=== PATIENT | female | born 1965 | race Caucasian/White ===

== ENCOUNTER → 2017-02-22 | Outpatient (CLI) | payer MEDICARE, MEDICAID ==
--- NOTE | 2017-02-23 13:36 | REP ---
RADIONUCLIDE THYROID UPTAKE AND SCAN: HISTORY: Thyrotoxicosis. Diffuse goiter. COMPARISON STUDY: March 29, 2016. TECHNIQUE: 419 microcuries of I123 sodium iodide is ingested and 24 uptake and functional thyroid images are acquired. FINDINGS: The 24 uptake value is elevated today at 42.6 percent (25-35%). Functional images demonstrate enlargement and homogeneous function in both lobes of the thyroid. No cold or warm lesion is seen. The right lobe measures 7.4 cm in craniocaudal span and the left lobe measures 6.7 cm. IMPRESSION: Homogeneous uptake in an enlarged gland with increased uptake consistent with Graves disease. Signed by Ryan Cameron MD 02/23/2017 02:49 P
== END ==
LOC: M RAD 10:59
PROVIDERS: ATTEND Internal Medicine Endocrinology, Diabetes & Metabolism
DX: E04.9 Nontoxic goiter, unspecified (principal)
CPT/HCPCS: 78012; A9516

== ENCOUNTER → 2017-03-06 | Outpatient (CLI) | payer MEDICARE, MEDICAID | LOC: M RAD 13:56 | PROVIDERS: ATTEND Internal Medicine Endocrinology, Diabetes & Metabolism | DX: E05.90 Thyrotoxicosis, unspecified without thyrotoxic crisis or storm (principal) | CPT/HCPCS: 79005; A9517 ==

== ENCOUNTER 2017-08-21 07:20 | Emergency (ER) | payer MEDICARE, MEDICAID ==
[2017-08-21] MEDS: IPRATROPIUM 0.5MG/ALBUTEROL 2.5MG INH SOL UD 3ML (DUONEB)(J7620) NEB ×2 (08:06→08:19)
[2017-08-21 08:21] LABS: BASO % 0.2 % (0.0-1.0); EOS % 0.4 % (0.0-3.0); HEMATOCRIT 33.7 % (36.0-47.0); HEMOGLOBIN 11.5 g/dl (12.0-16.0); IMMATURE GRANULOCYTE % 0.5 % (0-3.0); LYMPH # 1.4 10^3/uL (1.5-4.5); MEAN CORPUSCULAR HEMOGLOBIN 31.9 pg (27.0-33.0); MEAN CORPUSCULAR HGB CONC 34.1 g/dl (32.0-36.5); MEAN CORPUSCULAR VOLUME 93.6 fl (80.0-96.0); MONO % 10.8 % (0.0-5.0); NEUTROPHILS # 6.8 10^3/uL (1.8-7.7); NEUTROPHILS % 73.1 % (36.0-66.0); PLATELET COUNT, AUTOMATED 220 10^3/uL (150-450); RED CELL DISTRIBUTION WIDTH 12.5 % (11.5-14.5); WHITE BLOOD COUNT 9.3 10^3/uL (4.0-10.0)
[2017-08-21 08:27] LABS: ABG BASE EXCESS -0.4 (-2.0-2.0); ABG HCO3 21.8 MEQ/L (22.0-26.0); ABG O2 SATURATION 94.1 % (95.0-99.0); ABG PARTIAL PRESSURE CO2 28.5 mmHg (35.0-45.0); ABG PARTIAL PRESSURE O2 66.8 mmHg (75.0-100.0); ABG STANDARD HCO3 24.1 MEQ/L (22.0-26.0); ABG TOTAL CO2 22.7 MEQ/L (22.0-29.0); ABG pH (ARTERIAL) 7.502 UNITS (7.350-7.450)
[2017-08-21 08:34] LABS: INR 1.21; PROTHROMBIN TIME 15.5 SECONDS (12.4-14.5)
[2017-08-21 08:55] LABS: ALBUMIN 2.8 GM/DL (3.2-5.2); ALBUMIN/GLOBULIN RATIO 0.56 (1.00-1.93); ALKALINE PHOSPHATASE 106 U/L (45-117); ALT/SGPT 18 U/L (12-78); ANION GAP 9 MEQ/L (8-16); AST/SGOT 31 U/L (7-37); BILIRUBIN,DIRECT 0.2 MG/DL (0.0-0.2); BILIRUBIN,TOTAL 0.6 MG/DL (0.2-1.0); BLOOD UREA NITROGEN 12 MG/DL (7-18); CALCIUM LEVEL 8.3 MG/DL (8.5-10.1); CARBON DIOXIDE LEVEL 25 MEQ/L (21-32); CHLORIDE LEVEL 101 MEQ/L (98-107); CPK CREATINE PHOSPHOKINASE 41 U/L (26-192); GLOMERULAR FILTRATION RATE > 60.0 (>51); GLUCOSE, FASTING 96 MG/DL (70-100); POTASSIUM SERUM 3.6 MEQ/L (3.5-5.1); SODIUM LEVEL 135 MEQ/L (136-145); TOTAL PROTEIN 7.8 GM/DL (6.4-8.2); TROPONIN I < 0.02 NG/ML (< 0.10)
[2017-08-21 08:57] LABS: LACTIC ACID SEPSIS PROTOCOL 2.6 MMOL/L (0.4-2.0)
[2017-08-21] MEDS ORDERED: ISOVUE-370 76% 100ML VIAL (Q9967) As Ordered (09:00)
[2017-08-21 09:01] LABS: MB/CK RELATIVE INDEX 2.43 (< OR =4); NT-PRO BNP 318 PG/ML (<125); THYROID STIMULATING HORMONE 0.044 uIU/ML (0.358-3.740)
[2017-08-21] MEDS: methylPREDNISolone INJ 125 MG/2 ML VIAL (J2930) IV (09:13)
[2017-08-21] MEDS: NS 1,000 ML IV (09:14)
== END 2017-08-21 11:12 | disposition home or self-care (01) ==
LOC: M ED 07:20
DX: R59.0 Localized enlarged lymph nodes (principal); R91.8 Other nonspecific abnormal finding of lung field; J44.9 Chronic obstructive pulmonary disease, unspecified; I51.9 Heart disease, unspecified; Z79.890 Hormone replacement therapy; Z79.899 Other long term (current) drug therapy; Z86.39 Personal history of other endocrine, nutritional and metabolic disease; Z92.3 Personal history of irradiation; Z91.030 Bee allergy status

== ENCOUNTER 2017-08-21 16:18 | Inpatient (IN) | payer MEDICARE, MEDICAID ==
[2017-08-21] MEDS: IPRATROPIUM 0.5MG/ALBUTEROL 2.5MG INH SOL UD 3ML (DUONEB)(J7620) NEB (16:53)
[2017-08-21] MEDS ORDERED: IPRATROPIUM 0.5MG/ALBUTEROL 2.5MG INH SOL UD 3ML (DUONEB)(J7620) NEB (19:00)
[2017-08-21] MEDS: NS 1,000 ML IV (20:40)
[2017-08-21 21:11] LABS: ETHYL ALCOHOL (ETHANOL) < 0.003 % (0.000-0.010)
[2017-08-21] MEDS: NADOLOL 20MG TABLET PO (21:12)
[2017-08-21] MEDS: LEVOTHYROXINE 125MCG TABLET (0.125MG) PO (21:14)
[2017-08-21] MEDS: LIOTHYRONINE 25 MCG TAB PO (21:19)
[2017-08-21 21:49] LABS: AMPHETAMINES LEVEL URINE NEGATIVE (NEGATIVE); BARBITURATES URINE NEGATIVE (NEGATIVE); BENZODIAZEPINES URINE NEGATIVE (NEGATIVE); CANNABINOIDS URINE POSITIVE (NEGATIVE); COCAINE METABOLITE URINE NEGATIVE (NEGATIVE); METHADONE URINE NEGATIVE (NEGATIVE); OPIATES URINE NEGATIVE (NEGATIVE); PHENCYCLIDINE URINE NEGATIVE (NEGATIVE)
[2017-08-22 04:11] LABS: HEMATOCRIT 28.2 % (36.0-47.0); HEMOGLOBIN 9.7 g/dl (12.0-16.0); IMMATURE GRANULOCYTE % 0.9 % (0-3.0); LYMPH # 0.7 10^3/uL (1.5-4.5); LYMPH % 10.4 % (24.0-44.0); MEAN CORPUSCULAR HEMOGLOBIN 32.1 pg (27.0-33.0); MEAN CORPUSCULAR HGB CONC 34.4 g/dl (32.0-36.5); MEAN CORPUSCULAR VOLUME 93.4 fl (80.0-96.0); MONO # 0.3 10^3/uL (0.0-0.8); NEUTROPHILS # 5.4 10^3/uL (1.8-7.7); NEUTROPHILS % 83.7 % (36.0-66.0); PLATELET COUNT, AUTOMATED 189 10^3/uL (150-450); RED BLOOD COUNT 3.02 10^6/uL (4.00-5.40); RED CELL DISTRIBUTION WIDTH 12.6 % (11.5-14.5); WHITE BLOOD COUNT 6.5 10^3/uL (4.0-10.0)
[2017-08-22 04:34] LABS: ALBUMIN 2.3 GM/DL (3.2-5.2); ALBUMIN/GLOBULIN RATIO 0.55 (1.00-1.93); ALKALINE PHOSPHATASE 113 U/L (45-117); ALT/SGPT 16 U/L (12-78); ANION GAP 9 MEQ/L (8-16); AST/SGOT 19 U/L (7-37); BILIRUBIN,TOTAL 0.3 MG/DL (0.2-1.0); BLOOD UREA NITROGEN 25 MG/DL (7-18); CARBON DIOXIDE LEVEL 23 MEQ/L (21-32); CHLORIDE LEVEL 106 MEQ/L (98-107); CREATININE FOR GFR 0.93 MG/DL (0.55-1.30); GLOMERULAR FILTRATION RATE > 60.0 (>51); GLUCOSE, FASTING 229 MG/DL (70-100); POTASSIUM SERUM 3.9 MEQ/L (3.5-5.1); SODIUM LEVEL 138 MEQ/L (136-145); TOTAL PROTEIN 6.5 GM/DL (6.4-8.2)
[2017-08-22] MEDS: LEVOTHYROXINE 125MCG TABLET (0.125MG) PO (06:05)
[2017-08-22 07:44] LABS: BASO % 0.1 % (0.0-1.0); HEMATOCRIT 30.4 % (36.0-47.0); HEMOGLOBIN 10.4 g/dl (12.0-16.0); IMMATURE GRANULOCYTE % 0.5 % (0-3.0); LYMPH # 0.8 10^3/uL (1.5-4.5); LYMPH % 7.9 % (24.0-44.0); MEAN CORPUSCULAR HEMOGLOBIN 31.5 pg (27.0-33.0); MEAN CORPUSCULAR HGB CONC 34.2 g/dl (32.0-36.5); MEAN CORPUSCULAR VOLUME 92.1 fl (80.0-96.0); MONO # 0.6 10^3/uL (0.0-0.8); MONO % 5.3 % (0.0-5.0); NEUTROPHILS # 9.2 10^3/uL (1.8-7.7); NEUTROPHILS % 86.2 % (36.0-66.0); PLATELET COUNT, AUTOMATED 214 10^3/uL (150-450); RED CELL DISTRIBUTION WIDTH 12.5 % (11.5-14.5); WHITE BLOOD COUNT 10.7 10^3/uL (4.0-10.0)
[2017-08-22 08:13] LABS: ALBUMIN 2.5 GM/DL (3.2-5.2); ALBUMIN/GLOBULIN RATIO 0.64 (1.00-1.93); ALKALINE PHOSPHATASE 122 U/L (45-117); ALT/SGPT 17 U/L (12-78); ANION GAP 8 MEQ/L (8-16); AST/SGOT 19 U/L (7-37); BILIRUBIN,TOTAL 0.3 MG/DL (0.2-1.0); BLOOD UREA NITROGEN 24 MG/DL (7-18); CALCIUM LEVEL 8.2 MG/DL (8.5-10.1); CARBON DIOXIDE LEVEL 23 MEQ/L (21-32); CHLORIDE LEVEL 110 MEQ/L (98-107); CREATININE FOR GFR 0.79 MG/DL (0.55-1.30); GLOMERULAR FILTRATION RATE > 60.0 (>51); GLUCOSE, FASTING 164 MG/DL (70-100); MAGNESIUM LEVEL 2.1 MG/DL (1.8-2.4); POTASSIUM SERUM 4.8 MEQ/L (3.5-5.1); SODIUM LEVEL 141 MEQ/L (136-145); TOTAL PROTEIN 6.4 GM/DL (6.4-8.2)
[2017-08-22] MEDS: LIOTHYRONINE 25 MCG TAB PO (08:58)
[2017-08-22] MEDS: NADOLOL 20MG TABLET PO ×2 (09:00→21:30)
[2017-08-22] MEDS ORDERED: LevoFLOXacin 500 MG TABLET PO (12:00)
[2017-08-22] MEDS ORDERED: ALBUTEROL 90 MCG/ACT 8GM HFA INHALER INH (12:00)
[2017-08-22] MEDS: TIOTROPIUM INHALER/CAPSULE (SPIRIVA) INH (12:44)
[2017-08-22] MEDS: SYMBICORT 160/4.5MCG INHALER 6GM INH ×2 (12:45→20:11)
[2017-08-22] MEDS: EUCERIN 120GM CREAM EXT (14:48)
[2017-08-22] MEDS: LevoFLOXacin 500 MG TABLET PO (14:48)
[2017-08-22] MEDS ORDERED: ISOVUE-370 76% 100ML VIAL (Q9967) As Ordered (15:46)
[2017-08-22 15:59] LABS: INR 1.07; PROTHROMBIN TIME 14.1 SECONDS (12.4-14.5)
[2017-08-23] MEDS: LEVOTHYROXINE 125MCG TABLET (0.125MG) PO (05:52)
[2017-08-23] MEDS: LevoFLOXacin 500 MG TABLET PO (05:53)
[2017-08-23 06:12] LABS: BASO % 0.1 % (0.0-1.0); EOS % 0.4 % (0.0-3.0); HEMATOCRIT 29.5 % (36.0-47.0); HEMOGLOBIN 9.9 g/dl (12.0-16.0); IMMATURE GRANULOCYTE % 0.7 % (0-3.0); LYMPH % 20.8 % (24.0-44.0); MEAN CORPUSCULAR HEMOGLOBIN 31.7 pg (27.0-33.0); MEAN CORPUSCULAR HGB CONC 33.6 g/dl (32.0-36.5); MEAN CORPUSCULAR VOLUME 94.6 fl (80.0-96.0); MONO # 0.5 10^3/uL (0.0-0.8); MONO % 5.5 % (0.0-5.0); NEUTROPHILS % 72.5 % (36.0-66.0); PLATELET COUNT, AUTOMATED 244 10^3/uL (150-450); RED BLOOD COUNT 3.12 10^6/uL (4.00-5.40); RED CELL DISTRIBUTION WIDTH 12.7 % (11.5-14.5); WHITE BLOOD COUNT 9.7 10^3/uL (4.0-10.0)
[2017-08-23 06:36] LABS: ALBUMIN 2.2 GM/DL (3.2-5.2); ALBUMIN/GLOBULIN RATIO 0.54 (1.00-1.93); ALKALINE PHOSPHATASE 105 U/L (45-117); ALT/SGPT 15 U/L (12-78); ANION GAP 7 MEQ/L (8-16); AST/SGOT 13 U/L (7-37); BILIRUBIN,TOTAL 0.3 MG/DL (0.2-1.0); BLOOD UREA NITROGEN 19 MG/DL (7-18); CALCIUM LEVEL 8.4 MG/DL (8.5-10.1); CARBON DIOXIDE LEVEL 26 MEQ/L (21-32); CHLORIDE LEVEL 109 MEQ/L (98-107); CREATININE FOR GFR 0.66 MG/DL (0.55-1.30); GLOMERULAR FILTRATION RATE > 60.0 (>51); GLUCOSE, FASTING 79 MG/DL (70-100); SODIUM LEVEL 142 MEQ/L (136-145); TOTAL PROTEIN 6.3 GM/DL (6.4-8.2)
[2017-08-23] MEDS: TIOTROPIUM INHALER/CAPSULE (SPIRIVA) INH (07:39)
[2017-08-23] MEDS: SYMBICORT 160/4.5MCG INHALER 6GM INH ×2 (07:40→20:17)
[2017-08-23] MEDS: LIOTHYRONINE 25 MCG TAB PO ×3 (08:36→08:42)
[2017-08-23] MEDS: NADOLOL 20MG TABLET PO ×2 (08:36→21:00)
[2017-08-23] MEDS ORDERED: FIORICET TAB PO (10:30)
[2017-08-23] MEDS: traZODone 25MG PER 1/2 TABLET PO (21:02)
[2017-08-24] MEDS: LevoFLOXacin 500 MG TABLET PO (05:23)
[2017-08-24] MEDS: LEVOTHYROXINE 125MCG TABLET (0.125MG) PO (05:23)
[2017-08-24 06:02] LABS: BASO % 0.4 % (0.0-1.0); EOS # 0.1 10^3/uL (0.0-0.50); EOS % 1.6 % (0.0-3.0); HEMATOCRIT 30.7 % (36.0-47.0); HEMOGLOBIN 10.3 g/dl (12.0-16.0); IMMATURE GRANULOCYTE % 0.9 % (0-3.0); LYMPH # 1.9 10^3/uL (1.5-4.5); LYMPH % 33.2 % (24.0-44.0); MEAN CORPUSCULAR HEMOGLOBIN 31.9 pg (27.0-33.0); MEAN CORPUSCULAR HGB CONC 33.6 g/dl (32.0-36.5); MONO # 0.5 10^3/uL (0.0-0.8); MONO % 9.4 % (0.0-5.0); NEUTROPHILS # 3.1 10^3/uL (1.8-7.7); NEUTROPHILS % 54.5 % (36.0-66.0); PLATELET COUNT, AUTOMATED 256 10^3/uL (150-450); RED BLOOD COUNT 3.23 10^6/uL (4.00-5.40); WHITE BLOOD COUNT 5.6 10^3/uL (4.0-10.0)
[2017-08-24 06:28] LABS: ALBUMIN 2.2 GM/DL (3.2-5.2); ALBUMIN/GLOBULIN RATIO 0.55 (1.00-1.93); ALKALINE PHOSPHATASE 98 U/L (45-117); ALT/SGPT 12 U/L (12-78); ANION GAP 8 MEQ/L (8-16); AST/SGOT 11 U/L (7-37); BILIRUBIN,TOTAL 0.3 MG/DL (0.2-1.0); BLOOD UREA NITROGEN 22 MG/DL (7-18); CALCIUM LEVEL 8.1 MG/DL (8.5-10.1); CARBON DIOXIDE LEVEL 25 MEQ/L (21-32); CHLORIDE LEVEL 109 MEQ/L (98-107); CREATININE FOR GFR 0.75 MG/DL (0.55-1.30); GLOMERULAR FILTRATION RATE > 60.0 (>51); GLUCOSE, FASTING 87 MG/DL (70-100); MAGNESIUM LEVEL 1.7 MG/DL (1.8-2.4); POTASSIUM SERUM 4.3 MEQ/L (3.5-5.1); SODIUM LEVEL 142 MEQ/L (136-145); TOTAL PROTEIN 6.2 GM/DL (6.4-8.2)
[2017-08-24] MEDS: SYMBICORT 160/4.5MCG INHALER 6GM INH ×2 (08:35→20:51)
[2017-08-24] MEDS: TIOTROPIUM INHALER/CAPSULE (SPIRIVA) INH (08:35)
[2017-08-24] MEDS: MAG SULF 1GM/100ML (MAG RUN) 1 GM in APPROPRIATE DILUENT 1 EA IV (08:56)
[2017-08-24] MEDS: LIOTHYRONINE 25 MCG TAB PO (08:56)
[2017-08-24] MEDS: NADOLOL 20MG TABLET PO ×2 (08:56→20:30)
[2017-08-24] MEDS: EPINEPHrine 1MG/10ML SYRINGE 1.5IN As Ordered (11:57)
[2017-08-24] MEDS: MUPIROCIN 2% OINT 22 GM TUBE As Ordered (12:30)
[2017-08-24] MEDS: CETACAINE SPRAY 5GM As Ordered (12:34)
[2017-08-24] MEDS: ceFAZolin 2 GM/D5W 50 ML IV BAG (J0690 PER 500MG) As Ordered (12:42)
[2017-08-24] MEDS: THROMBIN SOLN 20,000 UNITS KIT As Ordered (12:50)
[2017-08-24] MEDS: BUPIVACAINE LIPOSOME/PF 1.3% 20 ML VIAL (13.3MG/ML)(EXPAREL) As Ordered (13:00)
[2017-08-24] MEDS ORDERED: fentaNYL 250 MCG/5 ML INJECTION (J3010) As Ordered (13:08)
[2017-08-24] MEDS ORDERED: dexameTHASONE 4 MG/ML 1ML VIAL (J1100) As Ordered (13:08)
[2017-08-24] MEDS ORDERED: ROCURONIUM BROMIDE 50 MG/5 ML VIAL As Ordered (13:08)
[2017-08-24] MEDS ORDERED: MIDAZOLAM INJ 2 MG/2 ML VIAL (J2250) As Ordered (13:08)
[2017-08-24] MEDS ORDERED: ONDANSETRON 4MG/2ML VIAL (J2405) As Ordered (13:08)
[2017-08-24] MEDS ORDERED: PROPOFOL 200 MG/20 ML VIAL As Ordered (13:08)
[2017-08-24] MEDS ORDERED: LIDOCAINE 2% INJ 100 MG/5 ML SDV (FOR ANES.) As Ordered (13:08)
[2017-08-24] MEDS ORDERED: LEVALBUTEROL 1.25 MG/0.5 ML CONCENTRATE NEB As Ordered (13:34)
[2017-08-24] MEDS: LEVALBUTEROL 1.25 MG/0.5 ML CONCENTRATE NEB INH (13:38)
[2017-08-24] MEDS ORDERED: fentaNYL 100 MCG/2 ML INJECTION (J3010) IV (13:45)
[2017-08-24] MEDS: LR 1,000 ML IV (13:45)
[2017-08-24] MEDS ORDERED: PERCOCET 5MG/325MG TAB PO (13:45)
[2017-08-24] MEDS: PERCOCET 5MG/325MG TAB PO ×2 (17:03→23:19)
[2017-08-24] MEDS: MORPHINE 4 MG/ML 1ML VIAL (J2270) IV (18:57)
[2017-08-24] MEDS: traZODone 25MG PER 1/2 TABLET PO (20:31)
[2017-08-25] MEDS: MORPHINE 4 MG/ML 1ML VIAL (J2270) IV (00:46)
[2017-08-25] MEDS: LevoFLOXacin 500 MG TABLET PO (05:37)
[2017-08-25] MEDS: LEVOTHYROXINE 125MCG TABLET (0.125MG) PO (05:37)
[2017-08-25] MEDS ORDERED: MUPIROCIN 2% OINT 22 GM TUBE TOP (06:00)
[2017-08-25 06:30] LABS: BASO % 0.1 % (0.0-1.0); EOS # 0.1 10^3/uL (0.0-0.50); EOS % 0.7 % (0.0-3.0); HEMATOCRIT 28.6 % (36.0-47.0); HEMOGLOBIN 9.7 g/dl (12.0-16.0); IMMATURE GRANULOCYTE % 0.8 % (0-3.0); LYMPH # 1.3 10^3/uL (1.5-4.5); LYMPH % 18.4 % (24.0-44.0); MEAN CORPUSCULAR HEMOGLOBIN 32.1 pg (27.0-33.0); MEAN CORPUSCULAR HGB CONC 33.9 g/dl (32.0-36.5); MEAN CORPUSCULAR VOLUME 94.7 fl (80.0-96.0); MONO # 0.5 10^3/uL (0.0-0.8); MONO % 7.4 % (0.0-5.0); NEUTROPHILS # 5.3 10^3/uL (1.8-7.7); NEUTROPHILS % 72.6 % (36.0-66.0); PLATELET COUNT, AUTOMATED 270 10^3/uL (150-450); RED BLOOD COUNT 3.02 10^6/uL (4.00-5.40); WHITE BLOOD COUNT 7.3 10^3/uL (4.0-10.0)
[2017-08-25 06:54] LABS: ALBUMIN 2.4 GM/DL (3.2-5.2); ALBUMIN/GLOBULIN RATIO 0.57 (1.00-1.93); ALKALINE PHOSPHATASE 116 U/L (45-117); ALT/SGPT 12 U/L (12-78); ANION GAP 9 MEQ/L (8-16); AST/SGOT 10 U/L (7-37); BILIRUBIN,TOTAL 0.3 MG/DL (0.2-1.0); BLOOD UREA NITROGEN 23 MG/DL (7-18); CALCIUM LEVEL 8.3 MG/DL (8.5-10.1); CARBON DIOXIDE LEVEL 25 MEQ/L (21-32); CHLORIDE LEVEL 106 MEQ/L (98-107); GLOMERULAR FILTRATION RATE > 60.0 (>51); GLUCOSE, FASTING 108 MG/DL (70-100); MAGNESIUM LEVEL 2.2 MG/DL (1.8-2.4); POTASSIUM SERUM 4.2 MEQ/L (3.5-5.1); SODIUM LEVEL 140 MEQ/L (136-145); TOTAL PROTEIN 6.6 GM/DL (6.4-8.2)
[2017-08-25] MEDS: LIOTHYRONINE 25 MCG TAB PO (08:51)
[2017-08-25] MEDS: NADOLOL 20MG TABLET PO (08:52)
[2017-08-25] MEDS: TIOTROPIUM INHALER/CAPSULE (SPIRIVA) INH (09:19)
[2017-08-25] MEDS: SYMBICORT 160/4.5MCG INHALER 6GM INH (09:19)
== END 2017-08-25 10:42 | disposition home or self-care (01) | DRG 987 ==
LOC: M MSPAV 08-22 15:27 → M ED 16:18 → M ED INP 18:24 → M ICU 20:16
PROVIDERS: Internal Medicine
PROC: 07B20ZX Excision of Left Neck Lymphatic, Open Approach, Diagnostic (ICD-10-PCS; principal; 2017-08-24 11:45)
PROC: 0BJ08ZZ Inspection of Tracheobronchial Tree, Via Natural or Artificial Opening Endoscopic (ICD-10-PCS; 2017-08-24 11:45)
DX: C34.10 Malignant neoplasm of upper lobe, unspecified bronchus or lung (principal); J18.9 Pneumonia, unspecified organism; R59.0 Localized enlarged lymph nodes; J44.9 Chronic obstructive pulmonary disease, unspecified; I51.9 Heart disease, unspecified; Z79.890 Hormone replacement therapy; Z79.899 Other long term (current) drug therapy; Z86.39 Personal history of other endocrine, nutritional and metabolic disease; Z92.3 Personal history of irradiation; Z91.030 Bee allergy status; I50.9 Heart failure, unspecified; I48.91 Unspecified atrial fibrillation; E83.42 Hypomagnesemia; I95.9 Hypotension, unspecified; E05.90 Thyrotoxicosis, unspecified without thyrotoxic crisis or storm; Z87.891 Personal history of nicotine dependence

== ENCOUNTER → 2017-08-27 | Outpatient (REF) | payer MEDICARE, MEDICAID ==
[2017-08-27 18:47] LABS: FERRITIN 334 NG/ML (8-252); IRON (FE) 49 UG/DL (50-170); PERCENT SATURATION 17.6 % (13.2-45.0); TOTAL IRON BINDING CAPACITY 278 UG/DL (250-450); VITAMIN B12 LEVEL 556 PG/ML
[2017-08-27 18:49] LABS: FOLATE 8.5 NG/ML
== END ==
LOC: M LAB REF 17:40
DX: R59.0 Localized enlarged lymph nodes (principal); D64.9 Anemia, unspecified
CPT/HCPCS: 82746

== ENCOUNTER → 2017-09-03 | Outpatient (CLI) | payer MEDICARE, MEDICAID | LOC: M SMT 10:27 | DX: R91.8 Other nonspecific abnormal finding of lung field (principal); R06.02 Shortness of breath | CPT/HCPCS: 71046 ==

== ENCOUNTER → 2017-09-26 | Outpatient (CLI) | payer MEDICARE, MEDICAID | LOC: M PLARAD 08:30 | DX: C34.12 Malignant neoplasm of upper lobe, left bronchus or lung (principal) | CPT/HCPCS: 78815 ==

== ENCOUNTER 2017-10-01 09:55 | Outpatient (RCR) | payer MEDICARE, MEDICAID | END 2017-10-08 | LOC: M ONCR 09:55 | DX: C34.02 Malignant neoplasm of left main bronchus (principal) | CPT/HCPCS: 77334 ==

== ENCOUNTER 2017-10-10 10:37 | Outpatient (RCR) | payer MEDICARE, MEDICAID | END 2017-11-08 | LOC: M ONCR 10:37 | DX: C34.02 Malignant neoplasm of left main bronchus (principal) | CPT/HCPCS: 77300 ==

== ENCOUNTER → 2017-11-27 | Outpatient (CLI) | payer MEDICARE, MEDICAID | LOC: M ONCR 13:58 | DX: C34.90 Malignant neoplasm of unspecified part of unspecified bronchus or lung (principal) | CPT/HCPCS: G0463 ==

== ENCOUNTER 2017-11-28 13:29 | Outpatient (RCR) | payer MEDICARE, MEDICAID | END 2017-12-08 | LOC: M ONCR 13:29 | DX: C34.02 Malignant neoplasm of left main bronchus (principal) | CPT/HCPCS: 77336 ==

== ENCOUNTER 2017-12-10 11:48 | Outpatient (RCR) | payer MEDICARE, MEDICAID | END 2018-01-08 | LOC: M ONCR 11:48 | DX: C34.02 Malignant neoplasm of left main bronchus (principal) | CPT/HCPCS: 77300 ==

== ENCOUNTER 2018-01-09 11:32 | Outpatient (RCR) | payer MEDICARE, MEDICAID | END 2018-02-08 | LOC: M ONCR 11:32 | DX: C34.02 Malignant neoplasm of left main bronchus (principal) | CPT/HCPCS: 77336 ==

== ENCOUNTER → 2018-02-13 | Outpatient (CLI) | payer MEDICARE, MEDICAID | LOC: M ONCR 10:33 | DX: C34.02 Malignant neoplasm of left main bronchus (principal) | CPT/HCPCS: G0463 ==

== ENCOUNTER → 2018-04-02 | Outpatient (CLI) | payer MEDICARE, MEDICAID | LOC: M PLARAD 09:32 | DX: C34.12 Malignant neoplasm of upper lobe, left bronchus or lung (principal); C79.51 Secondary malignant neoplasm of bone; Z92.21 Personal history of antineoplastic chemotherapy; Z92.3 Personal history of irradiation | CPT/HCPCS: 78815 ==

== ENCOUNTER 2018-04-22 19:38 | Emergency (ER) | payer MEDICARE, MEDICAID ==
[2018-04-22] MEDS: diazePAM 5 MG TAB PO (20:30)
[2018-04-22] MEDS: KETOROLAC 30 MG/ML VIAL (J1885) IV (20:30)
[2018-04-22] MEDS: HYDROMORPHONE HCL 0.5 MG/ 0.5 ML SYRINGE (J1170 PER 1) IV (20:55)
[2018-04-22 20:58] LABS: HEMATOCRIT 35.3 % (36.0-47.0); HEMOGLOBIN 11.9 g/dl (12.0-15.5); MEAN CORPUSCULAR HEMOGLOBIN 32.6 pg (27.0-33.0); MEAN CORPUSCULAR HGB CONC 33.7 g/dl (32.0-36.5); MEAN CORPUSCULAR VOLUME 96.7 fl (80.0-96.0); PLATELET COUNT, AUTOMATED 189 10^3/uL (150-450); RED BLOOD COUNT 3.65 10^6/uL (4.00-5.40); RED CELL DISTRIBUTION WIDTH 12.6 % (11.5-14.5); WHITE BLOOD COUNT 4.1 10^3/uL (4.0-10.0)
[2018-04-22 21:22] LABS: ANION GAP 8 MEQ/L (8-16); BLOOD UREA NITROGEN 17 MG/DL (7-18); CARBON DIOXIDE LEVEL 23 MEQ/L (21-32); CHLORIDE LEVEL 105 MEQ/L (98-107); CREATININE FOR GFR 0.97 MG/DL (0.55-1.30); GLOMERULAR FILTRATION RATE > 60.0 (>51); GLUCOSE, FASTING 91 MG/DL (70-100); POTASSIUM SERUM 4.5 MEQ/L (3.5-5.1); SODIUM LEVEL 136 MEQ/L (136-145)
[2018-04-22 21:43] LABS: KETONE, URINE AUTO RFX NEGATIVE (NEGATIVE); LEUKOCYTE ESTERASE UR AUTO RFX NEGATIVE (NEGATIVE); NITRITE, URINE AUTO RFX NEGATIVE (NEGATIVE); RBC, URINE AUTO RFX 0 /HPF (0-3); SPECIFIC GRAVITY UR AUTO RFX 1.018 (1.002-1.035); SQUAM EPITHELIAL CELL UR AURFX 4 /HPF (0-6); WBC, URINE AUTO RFX 1 /HPF (0-3)
== END 2018-04-22 21:55 | disposition left against medical advice (07) ==
LOC: M ED 19:38
DX: G89.29 Other chronic pain (principal); C79.51 Secondary malignant neoplasm of bone; Z72.89 Other problems related to lifestyle; C34.90 Malignant neoplasm of unspecified part of unspecified bronchus or lung; I50.9 Heart failure, unspecified; I10 Essential (primary) hypertension; E03.9 Hypothyroidism, unspecified; F42.9 Obsessive-compulsive disorder, unspecified; Z72.0 Tobacco use; Z79.899 Other long term (current) drug therapy; Z91.030 Bee allergy status; Z53.21 Procedure and treatment not carried out due to patient leaving prior to being seen by health care provider

== ENCOUNTER 2018-04-22 22:07 | Inpatient (IN) | payer MEDICARE, MEDICAID ==
[2018-04-23] MEDS: HYDROMORPHONE HCL 0.5 MG/ 0.5 ML SYRINGE (J1170 PER 1) IV ×5 (00:41→21:22)
[2018-04-23] MEDS: NORCO, ANEXSIA 5/325MG TABLET (HYDROcodone/ACETAMINOPHEN) PO ×3 (04:36→08:15)
[2018-04-23] MEDS: LEVOTHYROXINE 88MCG TABLET (0.088 MG) PO (05:50)
[2018-04-23] MEDS: MULTIVITAMINS/MINERALS THERAP 1 TAB PO (08:14)
[2018-04-23] MEDS: RIVAROXABAN 20 MG TAB (XARELTO) PO (08:14)
[2018-04-23] MEDS: NADOLOL 20MG TABLET PO ×2 (08:26→21:20)
[2018-04-23] MEDS: MORPHINE 4 MG/ML 1ML VIAL/SYRINGE (J2270) IV (09:52)
[2018-04-23 12:04] LABS: HEMATOCRIT 29.6 % (36.0-47.0); MEAN CORPUSCULAR HEMOGLOBIN 32.6 pg (27.0-33.0); MEAN CORPUSCULAR HGB CONC 33.8 g/dl (32.0-36.5); MEAN CORPUSCULAR VOLUME 96.4 fl (80.0-96.0); PLATELET COUNT, AUTOMATED 139 10^3/uL (150-450); RED BLOOD COUNT 3.07 10^6/uL (4.00-5.40); RED CELL DISTRIBUTION WIDTH 12.7 % (11.5-14.5); WHITE BLOOD COUNT 3.1 10^3/uL (4.0-10.0)
[2018-04-23 12:39] LABS: ALBUMIN 3.3 GM/DL (3.2-5.2); ALKALINE PHOSPHATASE 91 U/L (45-117); ALT/SGPT 14 U/L (12-78); ANION GAP 7 MEQ/L (8-16); AST/SGOT 44 U/L (7-37); BILIRUBIN,TOTAL 0.4 MG/DL (0.2-1.0); BLOOD UREA NITROGEN 19 MG/DL (7-18); CALCIUM LEVEL 7.9 MG/DL (8.5-10.1); CARBON DIOXIDE LEVEL 22 MEQ/L (21-32); CHLORIDE LEVEL 103 MEQ/L (98-107); CREATININE FOR GFR 0.93 MG/DL (0.55-1.30); GLOMERULAR FILTRATION RATE > 60.0 (>51); GLUCOSE, FASTING 90 MG/DL (70-100); POTASSIUM SERUM 4.7 MEQ/L (3.5-5.1); SODIUM LEVEL 132 MEQ/L (136-145); TOTAL PROTEIN 7.4 GM/DL (6.4-8.2)
[2018-04-23] MEDS: oxyCODONE 5MG TAB PO ×2 (14:32→23:53)
[2018-04-23] MEDS: MORPHINE 15 MG SA TAB PO (22:21)
[2018-04-24] MEDS: HYDROMORPHONE HCL 0.5 MG/ 0.5 ML SYRINGE (J1170 PER 1) IV ×8 (00:47→23:52)
[2018-04-24] MEDS: oxyCODONE 5MG TAB PO ×3 (06:10→19:37)
[2018-04-24] MEDS: LEVOTHYROXINE 88MCG TABLET (0.088 MG) PO (06:11)
[2018-04-24 06:26] LABS: EOS # 0.1 10^3/uL (0.0-0.50); EOS % 4.2 % (0.0-3.0); HEMOGLOBIN 10.5 g/dl (12.0-15.5); IMMATURE GRANULOCYTE % 1.9 % (0-3.0); LYMPH # 0.6 10^3/uL (1.5-4.5); MEAN CORPUSCULAR HEMOGLOBIN 32.2 pg (27.0-33.0); MEAN CORPUSCULAR HGB CONC 32.8 g/dl (32.0-36.5); MEAN CORPUSCULAR VOLUME 98.2 fl (80.0-96.0); MONO # 0.5 10^3/uL (0.0-0.8); MONO % 15.4 % (0.0-5.0); NEUTROPHILS # 1.8 10^3/uL (1.8-7.7); NEUTROPHILS % 58.5 % (36.0-66.0); PLATELET COUNT, AUTOMATED 151 10^3/uL (150-450); RED BLOOD COUNT 3.26 10^6/uL (4.00-5.40); RED CELL DISTRIBUTION WIDTH 12.5 % (11.5-14.5); WHITE BLOOD COUNT 3.1 10^3/uL (4.0-10.0)
[2018-04-24 06:47] LABS: ANION GAP 7 MEQ/L (8-16); BLOOD UREA NITROGEN 18 MG/DL (7-18); C REACTIVE PROTEIN QUANTITATIV 0.52 MG/DL (0.00-0.30); CARBON DIOXIDE LEVEL 23 MEQ/L (21-32); CHLORIDE LEVEL 104 MEQ/L (98-107); CREATININE FOR GFR 0.92 MG/DL (0.55-1.30); GLOMERULAR FILTRATION RATE > 60.0 (>51); GLUCOSE, FASTING 107 MG/DL (70-100); POTASSIUM SERUM 4.6 MEQ/L (3.5-5.1); SODIUM LEVEL 134 MEQ/L (136-145)
[2018-04-24 06:54] LABS: ERYTHROCYTE SEDIMENTATION RATE 67 mm/hr (0-30)
[2018-04-24] MEDS: MULTIVITAMINS/MINERALS THERAP 1 TAB PO (09:05)
[2018-04-24] MEDS: RIVAROXABAN 20 MG TAB (XARELTO) PO (09:06)
[2018-04-24] MEDS: MORPHINE 15 MG SA TAB PO ×2 (09:06→21:40)
[2018-04-24] MEDS: NADOLOL 20MG TABLET PO ×2 (09:17→21:42)
[2018-04-24] MEDS: NORCO, ANEXSIA 5/325MG TABLET (HYDROcodone/ACETAMINOPHEN) PO ×3 (09:53→23:18)
[2018-04-24] MEDS: MIRALAX *UNIT DOSE* 17GM PACKET PO ×2 (11:48→21:40)
[2018-04-24] MEDS: DOCUSATE SODIUM 100 MG CAP PO ×2 (11:49→21:40)
[2018-04-25] MEDS: oxyCODONE 5MG TAB PO ×4 (01:37→20:02)
[2018-04-25] MEDS: HYDROMORPHONE HCL 0.5 MG/ 0.5 ML SYRINGE (J1170 PER 1) IV ×7 (03:00→21:28)
[2018-04-25] MEDS: NORCO, ANEXSIA 5/325MG TABLET (HYDROcodone/ACETAMINOPHEN) PO ×2 (03:39→07:43)
[2018-04-25] MEDS: LEVOTHYROXINE 88MCG TABLET (0.088 MG) PO (06:01)
[2018-04-25 06:52] LABS: BASO % 0.8 % (0.0-1.0); EOS # 0.1 10^3/uL (0.0-0.50); EOS % 3.3 % (0.0-3.0); HEMATOCRIT 34.7 % (36.0-47.0); HEMOGLOBIN 11.6 g/dl (12.0-15.5); IMMATURE GRANULOCYTE % 1.6 % (0-3.0); LYMPH # 0.6 10^3/uL (1.5-4.5); LYMPH % 17.6 % (24.0-44.0); MEAN CORPUSCULAR HEMOGLOBIN 32.9 pg (27.0-33.0); MEAN CORPUSCULAR HGB CONC 33.4 g/dl (32.0-36.5); MEAN CORPUSCULAR VOLUME 98.3 fl (80.0-96.0); MONO # 0.6 10^3/uL (0.0-0.8); MONO % 15.1 % (0.0-5.0); NEUTROPHILS # 2.2 10^3/uL (1.8-7.7); NEUTROPHILS % 61.6 % (36.0-66.0); PLATELET COUNT, AUTOMATED 171 10^3/uL (150-450); RED BLOOD COUNT 3.53 10^6/uL (4.00-5.40); RED CELL DISTRIBUTION WIDTH 12.7 % (11.5-14.5); WHITE BLOOD COUNT 3.6 10^3/uL (4.0-10.0)
[2018-04-25 07:13] LABS: ANION GAP 7 MEQ/L (8-16); BLOOD UREA NITROGEN 18 MG/DL (7-18); CALCIUM LEVEL 8.1 MG/DL (8.5-10.1); CARBON DIOXIDE LEVEL 21 MEQ/L (21-32); CHLORIDE LEVEL 101 MEQ/L (98-107); CREATININE FOR GFR 0.99 MG/DL (0.55-1.30); GLOMERULAR FILTRATION RATE > 60.0 (>51); GLUCOSE, FASTING 90 MG/DL (70-100); SODIUM LEVEL 129 MEQ/L (136-145)
[2018-04-25] MEDS: RIVAROXABAN 20 MG TAB (XARELTO) PO (09:01)
[2018-04-25] MEDS: MULTIVITAMINS/MINERALS THERAP 1 TAB PO (09:01)
[2018-04-25] MEDS: MORPHINE 15 MG SA TAB PO ×2 (09:01→20:02)
[2018-04-25] MEDS: MIRALAX *UNIT DOSE* 17GM PACKET PO ×2 (09:03→20:03)
[2018-04-25] MEDS: DOCUSATE SODIUM 100 MG CAP PO ×2 (10:38→20:03)
[2018-04-25] MEDS: NADOLOL 20MG TABLET PO ×2 (10:38→20:03)
[2018-04-25] MEDS: NS 1,000 ML IV (12:19)
[2018-04-25] MEDS: MOM 30ML SUSPENSION UDC PO (12:29)
[2018-04-25 12:57] LABS: OSMOLALITY SERUM 278 MOSM/KG (275-295)
[2018-04-25 18:08] LABS: SODIUM,RANDOM URINE 54 MEQ/L
[2018-04-25 18:09] LABS: OSMOLALITY URINE 358 MOSM/KG (500-800)
[2018-04-26] MEDS: HYDROMORPHONE HCL 0.5 MG/ 0.5 ML SYRINGE (J1170 PER 1) IV ×8 (00:33→22:07)
[2018-04-26] MEDS: oxyCODONE 5MG TAB PO ×4 (02:03→23:00)
[2018-04-26] MEDS: LEVOTHYROXINE 88MCG TABLET (0.088 MG) PO (06:17)
[2018-04-26 06:38] LABS: BASO % 0.5 % (0.0-1.0); EOS # 0.1 10^3/uL (0.0-0.50); EOS % 2.4 % (0.0-3.0); HEMATOCRIT 30.5 % (36.0-47.0); HEMOGLOBIN 10.4 g/dl (12.0-15.5); IMMATURE GRANULOCYTE % 1.1 % (0-3.0); LYMPH # 0.5 10^3/uL (1.5-4.5); LYMPH % 13.6 % (24.0-44.0); MEAN CORPUSCULAR HEMOGLOBIN 32.6 pg (27.0-33.0); MEAN CORPUSCULAR HGB CONC 34.1 g/dl (32.0-36.5); MEAN CORPUSCULAR VOLUME 95.6 fl (80.0-96.0); MONO # 0.5 10^3/uL (0.0-0.8); NEUTROPHILS # 2.6 10^3/uL (1.8-7.7); NEUTROPHILS % 70.4 % (36.0-66.0); PLATELET COUNT, AUTOMATED 161 10^3/uL (150-450); RED BLOOD COUNT 3.19 10^6/uL (4.00-5.40); RED CELL DISTRIBUTION WIDTH 12.4 % (11.5-14.5); WHITE BLOOD COUNT 3.8 10^3/uL (4.0-10.0)
[2018-04-26 07:09] LABS: ANION GAP 9 MEQ/L (8-16); BLOOD UREA NITROGEN 17 MG/DL (7-18); CALCIUM LEVEL 8.8 MG/DL (8.5-10.1); CARBON DIOXIDE LEVEL 19 MEQ/L (21-32); CHLORIDE LEVEL 99 MEQ/L (98-107); CREATININE FOR GFR 0.84 MG/DL (0.55-1.30); GLOMERULAR FILTRATION RATE > 60.0 (>51); GLUCOSE, FASTING 106 MG/DL (70-100); SODIUM LEVEL 127 MEQ/L (136-145)
[2018-04-26] MEDS: NS 1,000 ML IV (07:30)
[2018-04-26] MEDS: MIRALAX *UNIT DOSE* 17GM PACKET PO ×2 (08:49→21:00)
[2018-04-26] MEDS: DOCUSATE SODIUM 100 MG CAP PO ×2 (08:50→21:00)
[2018-04-26] MEDS: MOM 30ML SUSPENSION UDC PO (08:50)
[2018-04-26] MEDS: NADOLOL 20MG TABLET PO ×2 (08:50→21:03)
[2018-04-26] MEDS: MULTIVITAMINS/MINERALS THERAP 1 TAB PO (08:50)
[2018-04-26] MEDS: RIVAROXABAN 20 MG TAB (XARELTO) PO (08:51)
[2018-04-26] MEDS: IBUPROFEN 400 MG TAB PO (08:52)
[2018-04-26] MEDS: MORPHINE 15 MG SA TAB PO ×2 (08:53→21:02)
[2018-04-26] MEDS ORDERED: ISOVUE-370 76% 100ML VIAL (Q9967) As Ordered (11:21)
[2018-04-26] MEDS: BISACODYL 10 MG SUPP PR (12:00)
[2018-04-26] MEDS: GASTROGRAFIN SOLUTION 30ML PO ×2 (13:08→13:30)
[2018-04-26] MEDS: ACETAMINOPHEN TAB 650MG DOSE (2X325MG) PO (13:18)
[2018-04-26] MEDS ORDERED: IPRATROPIUM 0.5MG/ALBUTEROL 2.5MG INH SOL UD 3ML (DUONEB)(J7620) NEB (13:30)
[2018-04-26] MEDS: IPRATROPIUM 0.5MG/ALBUTEROL 2.5MG INH SOL UD 3ML (DUONEB)(J7620) NEB ×2 (14:00→21:04)
[2018-04-26] MEDS: methylPREDNISolone INJ 40 MG/1 ML VIAL (J2920) IV (16:30)
[2018-04-26] MEDS: TOLVAPTAN 15 MG TAB (SAMSCA) PO (16:30)
[2018-04-26 17:12] LABS: ALBUMIN 3.3 GM/DL (3.2-5.2); PHOSPHORUS LEVEL 2.4 MG/DL (2.5-4.9)
[2018-04-26] MEDS: GABAPENTIN 100 MG CAP PO (21:02)
[2018-04-27] MEDS: methylPREDNISolone INJ 40 MG/1 ML VIAL (J2920) IV ×2 (01:23→13:46)
[2018-04-27] MEDS: HYDROMORPHONE HCL 0.5 MG/ 0.5 ML SYRINGE (J1170 PER 1) IV ×5 (01:24→16:57)
[2018-04-27] MEDS: IPRATROPIUM 0.5MG/ALBUTEROL 2.5MG INH SOL UD 3ML (DUONEB)(J7620) NEB ×3 (02:00→13:13)
[2018-04-27] MEDS: ACETAMINOPHEN TAB 650MG DOSE (2X325MG) PO (03:03)
[2018-04-27] MEDS: LEVOTHYROXINE 88MCG TABLET (0.088 MG) PO (05:31)
[2018-04-27 06:24] LABS: BASO % 0.2 % (0.0-1.0); EOS % 0.2 % (0.0-3.0); HEMATOCRIT 31.8 % (36.0-47.0); HEMOGLOBIN 10.9 g/dl (12.0-15.5); IMMATURE GRANULOCYTE % 1.6 % (0-3.0); LYMPH # 0.5 10^3/uL (1.5-4.5); LYMPH % 8.8 % (24.0-44.0); MEAN CORPUSCULAR HEMOGLOBIN 32.4 pg (27.0-33.0); MEAN CORPUSCULAR HGB CONC 34.3 g/dl (32.0-36.5); MEAN CORPUSCULAR VOLUME 94.6 fl (80.0-96.0); MONO # 0.3 10^3/uL (0.0-0.8); MONO % 5.5 % (0.0-5.0); NEUTROPHILS # 4.3 10^3/uL (1.8-7.7); NEUTROPHILS % 83.7 % (36.0-66.0); PLATELET COUNT, AUTOMATED 166 10^3/uL (150-450); RED BLOOD COUNT 3.36 10^6/uL (4.00-5.40); RED CELL DISTRIBUTION WIDTH 12.5 % (11.5-14.5); WHITE BLOOD COUNT 5.1 10^3/uL (4.0-10.0)
[2018-04-27 06:40] LABS: ANION GAP 7 MEQ/L (8-16); BLOOD UREA NITROGEN 17 MG/DL (7-18); CALCIUM LEVEL 8.7 MG/DL (8.5-10.1); CARBON DIOXIDE LEVEL 23 MEQ/L (21-32); CHLORIDE LEVEL 103 MEQ/L (98-107); CREATININE FOR GFR 0.96 MG/DL (0.55-1.30); GLOMERULAR FILTRATION RATE > 60.0 (>51); GLUCOSE, FASTING 155 MG/DL (70-100); POTASSIUM SERUM 4.9 MEQ/L (3.5-5.1); SODIUM LEVEL 133 MEQ/L (136-145)
[2018-04-27] MEDS: oxyCODONE 5MG TAB PO ×2 (07:02→15:17)
[2018-04-27] MEDS: MIRALAX *UNIT DOSE* 17GM PACKET PO (09:00)
[2018-04-27] MEDS: DOCUSATE SODIUM 100 MG CAP PO (09:00)
[2018-04-27] MEDS: MORPHINE 15 MG SA TAB PO (09:26)
[2018-04-27] MEDS: RIVAROXABAN 20 MG TAB (XARELTO) PO (09:26)
[2018-04-27] MEDS: MULTIVITAMINS/MINERALS THERAP 1 TAB PO (09:27)
[2018-04-27] MEDS: NADOLOL 20MG TABLET PO (09:27)
== END 2018-04-27 17:13 | disposition home or self-care (01) | DRG 948 ==
LOC: M ED 22:07 → M ED INP 04-23 02:23 → M MSPAV 04-23 04:11
DX: G89.3 Neoplasm related pain (acute) (chronic) (principal); C79.51 Secondary malignant neoplasm of bone; E22.2 Syndrome of inappropriate secretion of antidiuretic hormone; C34.90 Malignant neoplasm of unspecified part of unspecified bronchus or lung; E03.9 Hypothyroidism, unspecified; I48.91 Unspecified atrial fibrillation; K59.00 Constipation, unspecified; Z79.899 Other long term (current) drug therapy; Z91.038 Other insect allergy status; F17.210 Nicotine dependence, cigarettes, uncomplicated; Z79.01 Long term (current) use of anticoagulants

== ENCOUNTER 2018-05-08 12:42 | Inpatient (IN) | payer OTHER, MEDICARE, MEDICAID ==
[2018-05-08] MEDS ORDERED: ONDANSETRON 4MG/2ML VIAL (J2405) IV (13:30)
[2018-05-08] MEDS ORDERED: MORPHINE 4 MG/ML 1ML VIAL/SYRINGE (J2270) IV (13:30)
[2018-05-08] MEDS: MORPHINE 10MG/0.5ML ORAL CONCENTRATE SOLUTION U/D SL ×3 (17:12→23:19)
[2018-05-08] MEDS: LORazepam 1 MG TAB PO (17:54)
[2018-05-08] MEDS: guaiFENesin ER 600 MG TAB PO (21:00)
[2018-05-08] MEDS ORDERED: HYOSCYAMINE SULFATE 0.125 MG SUBL TABLET SL (23:00)
[2018-05-09] MEDS: MORPHINE 10MG/0.5ML ORAL CONCENTRATE SOLUTION U/D SL ×4 (05:20→13:53)
[2018-05-09] MEDS: ALBUTEROL SULFATE 2.5 MG/0.5 ML INH NEB SOLN INH (05:43)
[2018-05-09] MEDS: guaiFENesin ER 600 MG TAB PO ×2 (08:11→21:04)
[2018-05-09] MEDS: LORazepam 1 MG TAB PO (13:52)
[2018-05-09] MEDS: LORazepam 2 MG/ML VIAL (J2060) IV ×2 (18:08→22:20)
[2018-05-09] MEDS: RIVAROXABAN 20 MG TAB (XARELTO) PO (18:08)
[2018-05-09] MEDS: MORPHINE 4 MG/ML 1ML VIAL/SYRINGE (J2270) IV ×2 (18:08→22:20)
[2018-05-09] MEDS: NADOLOL 20MG TABLET PO (21:05)
[2018-05-10] MEDS: LEVOTHYROXINE 88MCG TABLET (0.088 MG) PO (04:37)
[2018-05-10] MEDS: LORazepam 2 MG/ML VIAL (J2060) IV ×3 (04:37→15:59)
[2018-05-10] MEDS: MORPHINE 4 MG/ML 1ML VIAL/SYRINGE (J2270) IV ×3 (04:37→17:07)
[2018-05-10] MEDS: NADOLOL 20MG TABLET PO ×4 (08:49→21:13)
[2018-05-10] MEDS: FUROSEMIDE 10MG PER 1/2 TABLET PO ×2 (08:49→09:00)
[2018-05-10] MEDS: guaiFENesin ER 600 MG TAB PO ×4 (08:49→21:12)
[2018-05-10] MEDS: ALBUTEROL SULFATE 2.5 MG/0.5 ML INH NEB SOLN INH (11:20)
[2018-05-10] MEDS: MORPHINE 10MG/0.5ML ORAL CONCENTRATE SOLUTION U/D SL ×2 (13:24→21:13)
[2018-05-10] MEDS: RIVAROXABAN 20 MG TAB (XARELTO) PO (18:40)
[2018-05-10] MEDS: LORazepam 1 MG TAB PO (21:20)
[2018-05-11] MEDS: MORPHINE 4 MG/ML 1ML VIAL/SYRINGE (J2270) IV ×4 (00:25→17:18)
[2018-05-11] MEDS: LORazepam 2 MG/ML VIAL (J2060) IV ×4 (00:25→17:18)
[2018-05-11] MEDS: LEVOTHYROXINE 88MCG TABLET (0.088 MG) PO (05:45)
[2018-05-11] MEDS: FUROSEMIDE 10MG PER 1/2 TABLET PO (09:00)
[2018-05-11] MEDS: NADOLOL 20MG TABLET PO (09:00)
[2018-05-11] MEDS: guaiFENesin ER 600 MG TAB PO (09:00)
[2018-05-11] MEDS: MORPHINE 10MG/0.5ML ORAL CONCENTRATE SOLUTION U/D SL (13:50)
== END 2018-05-11 20:30 | disposition expired | DRG 951 ==
LOC: M MS5PR 12:42
DX: Z51.5 Encounter for palliative care (principal); C79.51 Secondary malignant neoplasm of bone; C34.90 Malignant neoplasm of unspecified part of unspecified bronchus or lung; I48.91 Unspecified atrial fibrillation; E03.9 Hypothyroidism, unspecified; F29 Unspecified psychosis not due to a substance or known physiological condition; Z79.899 Other long term (current) drug therapy; F17.200 Nicotine dependence, unspecified, uncomplicated